=== PATIENT | male | born 1955 | race Hispanic/Latino ===

== ENCOUNTER 2022-06-05 08:07 | Day surgery (SDC) | payer OTHER ==
[2022-05-23 14:06] LABS: BASOPHILS % (AUTO) 0.5 % (0.0-5.0); EOSINOPHILS % (AUTO) 1.2 % (0.0-8.0); HEMATOCRIT 37.9 % (42-54); LYMPHOCYTES % (AUTO) 34.5 % (21.0-51.0); MEAN CORPUSCULAR HEMOGLOBIN 30.7 pg (27.0-33.0); MEAN CORPUSCULAR HGB CONC 34.3 g/dL (32.0-36.0); MEAN CORPUSCULAR VOLUME 89.6 fL (79-99); MONOCYTES % (AUTO) 7.9 % (3.0-13.0); NEUTROPHILS % (AUTO) 55.7 % (40.0-77.0); PLATELET COUNT (AUTO) 143 K/uL (130-400); RED BLOOD CELL COUNT(AUTO) 4.23 MIL/uL (4.50-6.20); RED CELL DISTRIBUTION WIDTH 11.9 % (11.0-15.5); WHITE BLOOD COUNT (AUTO) 6.6 K/uL (4.8-10.8)
[2022-05-23 14:12] LABS: CREATININE 1.4 mg/dL (0.5-1.5); POTASSIUM 3.9 mmol/L (3.5-5.1)
[2022-05-23 14:14] LABS: INR 0.99 (0.85-1.15); PROTHROMBIN TIME 10.8 SEC (9.6-11.6)
[2022-05-23 14:15] LABS: PARTIAL THROMBOPLASTIN TIME 28.2 SEC (26.3-35.5)
[2022-05-23 14:53] VITALS: BP 144/78
[2022-05-23 16:33] LABS: APPEARANCE,URINE CLOUDY (CLEAR); BILIRUBIN,URINE NEGATIVE (NEGATIVE); COLOR,URINE LIGHT-YELLOW (YELLOW); GLUCOSE, URINE (UA) NEGATIVE (NEGATIVE); KETONES,URINE NEGATIVE (NEGATIVE); LEUKOCYTE ESTERASE ,URINE 500 Leu/uL (NEGATIVE); NITRATE,URINE NEGATIVE (NEGATIVE); OCCULT BLOOD,URINE MODERATE (NEGATIVE); PH,URINE 5.5 (5.0-8.0); PROTEIN,URINE 30 mg/dL (NEGATIVE); UROBILINOGEN,URINE 0.2 mg/dL (0.2-1.0)
[2022-05-23 16:44] LABS: BACTERIA,URINE MOD /HPF (None Seen); MUCUS,URINE RARE LPF (None Seen); RBC,URINE 26-50 /HPF (0-1); SQUAMOUS EPITHELIAL CELL,UR RARE /HPF (0-2); WBC,URINE TNTC /HPF (0-1)
[2022-06-05] VITALS (18 sets, daily range): BP systolic 111–140; BP diastolic 60–79
[~2022-06-05] VITALS: Ht 167.6 cm; Wt 79.0 kg
[~2022-06-05 08:07] MED LIST: GENTAMICIN 80 MG/NS 100 ML PB 100 ML IV PRN
[2022-06-05] MEDS ORDERED: LISI5TAB21 PO (08:46)
[2022-06-05] MEDS ORDERED: LEVO-70 PO (08:46)
[2022-06-05] MEDS ORDERED: TAMS-1 PO (08:46)
[2022-06-05] MEDS ORDERED: METF-444 PO (08:46)
[2022-06-05] MEDS ORDERED: GLIM2TAB30 PO (08:46)
[2022-06-05] MEDS ORDERED: 0.9%NACL 1000ML 1,000 ML IV ONE (08:47)
[2022-06-05] MEDS: CEFTRIAXONE 1G VIAL IVPB PRN ×2 (09:02→10:18)
[2022-06-05] MEDS ORDERED: PROPOFOL 10 MG/ML 20ML VIAL IV ONE (10:05)
[2022-06-05] MEDS ORDERED: FENTANYL CITRATE PF 50 MCG/1 ML 2ML VIAL ONE ×2 (10:05→10:56)
[2022-06-05] MEDS ORDERED: LIDOCAINE PF 100MG/5ML (2%) SYRINGE 5ML ONE (10:05)
[2022-06-05] MEDS ORDERED: ROCURONIUM 10MG/1ML SYR 10 MG/ML ML ONE ×2 (10:05→10:57)
[2022-06-05] MEDS ORDERED: ONDANSETRON 4MG INJ ONE (10:18)
[2022-06-05] MEDS ORDERED: DEXAMETHASONE SOD PHOSPHATE 10MG/ML 1ML VIAL ONE (10:18)
[2022-06-05] MEDS ORDERED: NEOSTIGMINE 5MG/5ML SYR IV ONE (11:16)
[2022-06-05] MEDS ORDERED: GLYCOPYRROLATE 1 MG/5 ML SYRINGE ONE (11:16)
[2022-06-05] MEDS ORDERED: MEPERIDINE-PF 25 MG/ML SYG ONE ×2 (11:54→12:16)
== END 2022-06-05 14:04 | disposition home or self-care (01) ==
LOC: DAH 08:07
PROVIDERS: ATTEND Urology
DX: N40.1 Benign prostatic hyperplasia with lower urinary tract symptoms (principal); Z20.822 Contact with and (suspected) exposure to COVID-19; R33.8 Other retention of urine; I10 Essential (primary) hypertension; E11.9 Type 2 diabetes mellitus without complications; Z79.01 Long term (current) use of anticoagulants; Z79.899 Other long term (current) drug therapy
CPT/HCPCS: 80048; 85025; 85610; 85730; 87077; 87088; 87186; 87426; 81001; 36415; 71045; 93005; 52648; 82948 ×2; 87635; A6260; A4663; J7030 ×2; A4354; J3010 ×2; J3490; J1100; J2710; J2001; J0696; J2704; J2405; J2175 ×2; J1580; A4358; A4930; A4215; A4223; A4222; A4221; A4600